=== PATIENT | female | born 1945 | race Caucasian/White ===

== ENCOUNTER 2023-09-28 14:31 | Inpatient (IN) | payer MEDICAID ==
[~2023-09-28] VITALS: Ht 160 cm; Wt 81.2 kg
[2023-09-28] MEDS: KETOROLAC 15MG/ML VIAL IV ONE (15:36)
[2023-09-28 16:00] LABS: HEMATOCRIT. 35.4 % (36.0-48.0); MEAN CORPUSCULAR HEMOGLOBIN 30.4 pg (28.0-32.0); MEAN CORPUSCULAR HGB CONC 33.9 g/dL (31.0-37.0); MEAN CORPUSCULAR VOLUME 89.6 fL (81.0-99.0); MEAN PLATELET VOLUME 9.6 fl (7.4-10.4); PLATELET 377 x1000/uL (130-400); RED BLOOD CELL COUNT 3.95 mill/uL (4.2-5.4); RED CELL DISTRIBUTION WIDTH 18.9 % (11.6-14.6); WHITE BLOOD COUNT 15.4 x1000/uL (4.5-11.0)
[2023-09-28 16:08] LABS: DIFFERENTIAL COMMENT 1
[2023-09-28 16:14] LABS: ALANINE AMINOTRANSFERASE 88 IU/L (10-49); ASPARTATE AMINOTRANSFERASE 311 IU/L (<34); BILIRUBIN TOTAL 16.9 mg/dL (0.1-1.0); CALCIUM 8.2 mg/dL (8.7-10.4); CARBON DIOXIDE 25 mEq/L (21-32); CHLORIDE 100 mEq/L (98-107); CREATININE 1.1 mg/dL (0.6-1.0); GLUCOSE 76 mg/dL (70-105); POTASSIUM 3.2 mEq/L (3.5-5.1); PROTEIN TOTAL 8.2 g/dL (6.0-8.3); SODIUM 135 mEq/L (136-145); UREA NITROGEN BLOOD 21 mg/dL (9-23)
[2023-09-28 16:24] LABS: PLATELET ESTIMATE NORMAL
[2023-09-28] MEDS: MORPHINE SULFATE 2 MG/ML CPJ (NOT FOR IM USE) IV ONE (17:27)
[2023-09-28 17:51] LABS: INR 1.3
[2023-09-28 18:00] VITALS: BP 105/59; PULSE 105; RESP 18; TEMP 97.9
[2023-09-28] MEDS ORDERED: NALOXONE HCL 0.4MG/ML VIAL IV PRN (19:30)
[2023-09-28] MEDS: HYDROCODONE/ACETAMINOPHEN 10/325MG TABLET PO PRN (19:37)
[2023-09-28 20:00] VITALS: BP_SYST 106; BP_SYST 123; BP_DIAS 54; BP_DIAS 62; PULSE 101; PULSE 97; RESP 18; TEMP 97.8; TEMP 97.9
[2023-09-29] VITALS: BP 99/61; PULSE 111; RESP 20; TEMP 97.2
[2023-09-29 04:00] VITALS: BP 96/63; PULSE 156; RESP 19; TEMP 97.6
[2023-09-29] MEDS: SODIUM CHLORIDE 0.9% 1,000 ML IV ONE (04:13)
[2023-09-29 08:00] VITALS: BP 132/61; PULSE 109; RESP 20; TEMP 98
[2023-09-29] MEDS: ENOXAPARIN 40MG/0.4ML SYR SUBCUT SCH (09:16)
[2023-09-29 10:19] LABS: ALANINE AMINOTRANSFERASE 79 IU/L (10-49); ALBUMIN 2.5 g/dL (3.2-4.8); ASPARTATE AMINOTRANSFERASE 330 IU/L (<34); CALCIUM 7.5 mg/dL (8.7-10.4); CARBON DIOXIDE 26 mEq/L (21-32); CHLORIDE 101 mEq/L (98-107); GLUCOSE 91 mg/dL (70-105); POTASSIUM 3.1 mEq/L (3.5-5.1); PROTEIN TOTAL 6.4 g/dL (6.0-8.3); SODIUM 137 mEq/L (136-145); UREA NITROGEN BLOOD 26 mg/dL (9-23)
[2023-09-29 10:30] LABS: CREATININE 1.7 mg/dL (0.6-1.0)
[2023-09-29 12:00] VITALS: BP 116/64; PULSE 105; RESP 20; TEMP 98
[2023-09-29] MEDS: POTASSIUM CHLORIDE 20MEQ TABLET SR PO SCH (13:55)
[2023-09-29 16:00] VITALS: BP 141/71; PULSE 110; RESP 20; TEMP 97.7
[2023-09-29 20:00] VITALS: BP 138/61; PULSE 113; RESP 20; TEMP 97.4
[2023-09-30] VITALS: BP 112/54; PULSE 105; RESP 20; TEMP 98.2
[2023-09-30 04:00] VITALS: BP 133/60; PULSE 105; RESP 20; TEMP 98.8
[2023-09-30 08:00] VITALS: BP 128/44; PULSE 107; RESP 18; TEMP 98.7
[2023-09-30 12:00] VITALS: BP 120/60; PULSE 110; RESP 18; TEMP 97.9
[2023-09-30] MEDS: SODIUM CHLORIDE 0.9% 1,000 ML IV SCH (13:12)
[2023-09-30] MEDS: LEVOFLOXACIN 500MG TABLET PO NR (13:12)
[2023-09-30 16:00] VITALS: BP 119/51; PULSE 104; RESP 20; TEMP 98.7
[2023-09-30 16:51] LABS: BASOPHILS % 0.2 % (0.0-2.0); DIFFERENTIAL COMMENT 0; EOSINOPHILS % 0.5 % (0.0-5.0); HEMATOCRIT. 30.7 % (36.0-48.0); HEMOGLOBIN. 10.5 g/dL (12.0-16.0); LYMPHOCYTES % 10.9 % (20.0-50.0); MEAN CORPUSCULAR HEMOGLOBIN 30.2 pg (28.0-32.0); MEAN CORPUSCULAR HGB CONC 34.1 g/dL (31.0-37.0); MEAN CORPUSCULAR VOLUME 88.7 fL (81.0-99.0); MEAN PLATELET VOLUME 8.6 fl (7.4-10.4); NEUTROPHILS % 78.4 % (40.0-76.0); PLATELET 282 x1000/uL (130-400); RED BLOOD CELL COUNT 3.46 mill/uL (4.2-5.4); RED CELL DISTRIBUTION WIDTH 18.4 % (11.6-14.6); WHITE BLOOD COUNT 15.4 x1000/uL (4.5-11.0)
[2023-09-30 17:10] LABS: CALCIUM 7.8 mg/dL (8.7-10.4); CREATININE 1.6 mg/dL (0.6-1.0); POTASSIUM 3.8 mEq/L (3.5-5.1)
[2023-09-30 17:12] LABS: ALANINE AMINOTRANSFERASE 81 IU/L (10-49); ALBUMIN 2.5 g/dL (3.2-4.8); ASPARTATE AMINOTRANSFERASE 333 IU/L (<34); BILIRUBIN DIRECT 11.9 mg/dL (<=3.0); BILIRUBIN TOTAL 14.7 mg/dL (0.1-1.0); GAMMA GLUTAMYL TRANSPEPTIDASE 408 IU/L (<38); PROTEIN TOTAL 6.3 g/dL (6.0-8.3)
[2023-09-30 17:49] LABS: HEPATITIS A AB IGM NEGATIVE (Negative); HEPATITIS B CORE AB IGM NEGATIVE (Negative); HEPATITIS B SURFACE ANTIGEN NEGATIVE (Negative); HEPATITIS C AB NON REACTIVE (Neg) (Negative)
[2023-09-30 20:00] VITALS: BP 130/60; PULSE 106; RESP 18; TEMP 97.9
[2023-10-01] VITALS: BP 125/66; PULSE 111; RESP 20; TEMP 98.8
[2023-10-01 04:00] VITALS: BP 135/59; PULSE 105; RESP 20; TEMP 98.2
[2023-10-01 07:09] LABS: HEMATOCRIT. 28.6 % (36.0-48.0); HEMOGLOBIN. 9.8 g/dL (12.0-16.0); MEAN CORPUSCULAR HEMOGLOBIN 30.2 pg (28.0-32.0); MEAN CORPUSCULAR HGB CONC 34.1 g/dL (31.0-37.0); MEAN CORPUSCULAR VOLUME 88.5 fL (81.0-99.0); MEAN PLATELET VOLUME 8.5 fl (7.4-10.4); PLATELET 277 x1000/uL (130-400); RED BLOOD CELL COUNT 3.24 mill/uL (4.2-5.4); RED CELL DISTRIBUTION WIDTH 18.7 % (11.6-14.6); WHITE BLOOD COUNT 17.1 x1000/uL (4.5-11.0)
[2023-10-01 07:29] LABS: DIFFERENTIAL COMMENT 1
[2023-10-01 07:51] LABS: CALCIUM 7.8 mg/dL (8.7-10.4); CREATININE 1.3 mg/dL (0.6-1.0); POTASSIUM 4.5 mEq/L (3.5-5.1)
[2023-10-01 08:00] VITALS: BP 140/80; PULSE 84; RESP 14; TEMP 98.8
[2023-10-01] MEDS: ENOXAPARIN 30MG/0.3ML SYR SUBCUT SCH (08:29)
[2023-10-01] MEDS: LEVOFLOXACIN 250MG TABLET PO SCH (11:00)
[2023-10-01 12:00] VITALS: BP 127/66; PULSE 105; RESP 18; TEMP 98.6
[2023-10-01] MEDS: MORPHINE SULFATE 2 MG/ML CPJ (NOT FOR IM USE) IV NR (14:08)
[2023-10-01] MEDS: ONDANSETRON HCL 4MG/2ML INJ IV NR (14:08)
[2023-10-01 15:45] LABS: ANISOCYTOSIS 2+; PLATELET ESTIMATE NORMAL; TARGET CELLS 1+
[2023-10-01 16:00] VITALS: BP 120/72; PULSE 84; RESP 14; TEMP 98.2
[2023-10-01 17:52] LABS: CLARITY URINE TURBID (CLEAR); COLOR URINE DARK YELLOW (YELLOW); GLUCOSE URINE NEGATIVE (NEGATIVE); KETONES URINE NEGATIVE (NEGATIVE); LEUKOCYTE ESTERASE URINE 1+ (NEGATIVE); NITRITE URINE POSITIVE (NEGATIVE); OCCULT BLOOD URINE NEGATIVE (NEGATIVE); PH URINE 5.5 (4.5-8.0); PROTEIN URINE 1+ (NEGATIVE); SPECIFIC GRAVITY URINE 1.025 (1.005-1.030); UROBILINOGEN URINE 0.2 E.U./dL (0.2-1.0)
[2023-10-01 18:25] LABS: AMORPHOUS SEDIMENT URINE 1+ /lpf; BACTERIA URINE 4+; RBC URINE 0-2 /hpf (0-2); SQUAMOUS EPITHELIAL CELL URINE 1+ /lpf (RARE/1+)
[2023-10-01 20:00] VITALS: BP 134/63; PULSE 101; RESP 19; TEMP 98.5
[2023-10-02] VITALS: BP 136/58; PULSE 107; RESP 18; TEMP 97.3
[2023-10-02 04:00] VITALS: BP 121/55; PULSE 103; RESP 17; TEMP 98
[2023-10-02 06:52] LABS: HEMATOCRIT. 27.6 % (36.0-48.0); HEMOGLOBIN. 9.4 g/dL (12.0-16.0); MEAN CORPUSCULAR HEMOGLOBIN 30.5 pg (28.0-32.0); MEAN CORPUSCULAR HGB CONC 34.1 g/dL (31.0-37.0); MEAN CORPUSCULAR VOLUME 89.3 fL (81.0-99.0); MEAN PLATELET VOLUME 8.3 fl (7.4-10.4); PLATELET 264 x1000/uL (130-400); RED BLOOD CELL COUNT 3.09 mill/uL (4.2-5.4); RED CELL DISTRIBUTION WIDTH 17.9 % (11.6-14.6); WHITE BLOOD COUNT 15.6 x1000/uL (4.5-11.0)
[2023-10-02 06:57] LABS: DIFFERENTIAL COMMENT 1
[2023-10-02 07:05] LABS: CREATININE 1.3 mg/dL (0.6-1.0); POTASSIUM 3.8 mEq/L (3.5-5.1)
[2023-10-02 08:00] VITALS: BP 130/52; PULSE 103; RESP 18; TEMP 97.7
[2023-10-02 12:00] VITALS: BP 119/41; PULSE 97; RESP 18; TEMP 97.5
[2023-10-02 13:40] LABS: ANISOCYTOSIS 1+; NUCLEATED RED BLOOD CELLS 1 /100 WBC
[2023-10-02 13:41] LABS: PLATELET ESTIMATE NORMAL
[2023-10-02] MEDS: LACTULOSE 20G/30ML UDC PO NR (14:57)
[2023-10-02] MEDS: POLYETHYLENE GLYCOL 3350 (17GM) 1 DOSE PACK PO SCH (14:58)
[2023-10-02 16:00] VITALS: BP 129/62; PULSE 104; RESP 18; TEMP 97.9
[2023-10-02 20:00] VITALS: BP 148/90; PULSE 77; RESP 18; TEMP 97.7
[2023-10-03] VITALS: BP 128/56; PULSE 98; RESP 17; TEMP 97.7
[2023-10-03 04:00] VITALS: BP 123/58; PULSE 86; RESP 17; TEMP 97.5
[2023-10-03 08:00] VITALS: BP 122/53; PULSE 92; RESP 18; TEMP 99.5
[2023-10-03 12:00] VITALS: BP 130/50; PULSE 94; RESP 20; TEMP 99.5
[2023-10-03 16:00] VITALS: BP 123/51; PULSE 89; RESP 19; TEMP 99.5
[2023-10-03] MEDS: POLYETHYLENE GLYCOL 3350 (17GM) 1 DOSE PACK PO SCH (16:51)
[2023-10-03 20:00] VITALS: BP 138/55; PULSE 94; RESP 18; TEMP 97.9
[2023-10-04] VITALS (8 sets, daily range): BP systolic 120–140; BP diastolic 63–68; PULSE 60–104; RESP 16–20; TEMP 96.3–97.5; O2SAT 98
[2023-10-04] MEDS: HYDROCODONE/ACETAMINOPHEN 10/325MG TABLET PO NR ×2 (02:34→11:04)
[2023-10-04] MEDS ORDERED: HYDR-4001 MT (11:59)
[2023-10-04] MEDS ORDERED: LEVO-65 MT (12:00)
[2023-10-04] MEDS ORDERED: NALOXONE HCL 0.4MG/ML VIAL IV PRN (16:15)
[2023-10-04] MEDS: HYDROCODONE/ACETAMINOPHEN 10/325MG TABLET PO PRN (22:21)
== END 2023-10-04 23:55 | disposition home or self-care (01) | DRG 342 ==
LOC: ER 14:31 → 8WST 18:19
PROVIDERS: ADMIT Internal Medicine; ATTEND Internal Medicine
DX: S52.591A Other fractures of lower end of right radius, initial encounter for closed fracture (principal); N17.0 Acute kidney failure with tubular necrosis; S32.591A Other specified fracture of right pubis, initial encounter for closed fracture; D64.9 Anemia, unspecified; D72.829 Elevated white blood cell count, unspecified; E87.6 Hypokalemia; K74.60 Unspecified cirrhosis of liver; W01.0XXA Fall on same level from slipping, tripping and stumbling without subsequent striking against object, initial encounter; K57.90 Diverticulosis of intestine, part unspecified, without perforation or abscess without bleeding; K59.00 Constipation, unspecified; M47.816 Spondylosis without myelopathy or radiculopathy, lumbar region; M85.80 Other specified disorders of bone density and structure, unspecified site; R26.9 Unspecified abnormalities of gait and mobility; K80.20 Calculus of gallbladder without cholecystitis without obstruction; Z88.0 Allergy status to penicillin; Y93.89 Activity, other specified; Y92.89 Other specified places as the place of occurrence of the external cause; Y99.8 Other external cause status
CPT/HCPCS: 36415; 72170; 72192; 73110; 74176; 74181; 76700; 80048; 80053; 80076; 81003; 82977; 85025; 86705; 86709; 86850; 86900; 87340; 93306; 97162; 97167; 97530; 99285; A6261; J1650; J1885; J2270; J2405; J7030